=== PATIENT | male | born 1980 | race Caucasian/White ===

== ENCOUNTER → 2016-07-11 | Outpatient (REF) | LOC: WSOH 11:08 | DX: Z01.10 Encounter for examination of ears and hearing without abnormal findings (principal) | CPT/HCPCS: G0463 ==

== ENCOUNTER → 2017-10-03 | Outpatient (CLI) | payer BC ==
[~2017-10-03] VITALS: Ht 184.2 cm; Wt 164.9 kg
[~2017-10-03] MED LIST: DEPO-TESTOS100 MG/ML IM; SYNTHROID0.3 MG PO; ZESTRIL 20MG TA20 MG PO
[2017-10-03 08:28] VITALS: BP 122/80; PULSE 88
== END ==
LOC: LIGHT 07:53
DX: G47.33 Obstructive sleep apnea (adult) (pediatric) (principal); E88.81 Metabolic syndrome and other insulin resistance; E66.01 Morbid (severe) obesity due to excess calories; Z68.42 Body mass index [BMI] 45.0-49.9, adult; Z71.3 Dietary counseling and surveillance
CPT/HCPCS: G0463

== ENCOUNTER → 2018-10-27 | Outpatient (CLI) | payer BC ==
[~2018-10-27] MED LIST changes: +FLEXERIL 1010 MG/TAB PO; +NEURONTIN800 MG/TAB PO; +RELAFEN 50500 MG/TAB PO; +ROBAXIN 50500 MG/TAB PO; -ZESTRIL 20MG TA20 MG PO; +ZESTRIL40 MG PO
== END ==
LOC: LIGHT 14:00
DX: G47.33 Obstructive sleep apnea (adult) (pediatric) (principal); E88.81 Metabolic syndrome and other insulin resistance; R73.01 Impaired fasting glucose; E66.01 Morbid (severe) obesity due to excess calories; Z68.42 Body mass index [BMI] 45.0-49.9, adult; Z71.3 Dietary counseling and surveillance

== ENCOUNTER → 2018-11-06 | Outpatient (CLI) | payer BC | LOC: BHSO 14:55 | DX: F43.10 Post-traumatic stress disorder, unspecified (principal) ==

== ENCOUNTER → 2018-11-17 | Outpatient (CLI) | payer BC | LOC: BHSO 14:02 | DX: F43.10 Post-traumatic stress disorder, unspecified (principal) ==

== ENCOUNTER → 2018-11-18 | Outpatient (CLI) | payer BC | LOC: LIGHT 13:34 | DX: G47.33 Obstructive sleep apnea (adult) (pediatric) (principal); E88.81 Metabolic syndrome and other insulin resistance; R73.01 Impaired fasting glucose; E66.01 Morbid (severe) obesity due to excess calories; Z68.42 Body mass index [BMI] 45.0-49.9, adult; Z71.3 Dietary counseling and surveillance ==

== ENCOUNTER → 2018-11-25 | Outpatient (CLI) | payer BC ==
[~2018-11-25] MED LIST changes: +PHENTERMINE15 MG PO; +TOPAMAX 25MG25 M1 PO
== END ==
LOC: BHSO 08:59
DX: F43.10 Post-traumatic stress disorder, unspecified (principal)

== ENCOUNTER → 2018-11-27 | Outpatient (CLI) | payer BC ==
[~2018-11-27] VITALS: Ht 184.2 cm; Wt 163.7 kg
[2018-11-27 14:07] VITALS: BP 144/80; PULSE 100
== END ==
LOC: LIGHT 13:38
DX: G47.33 Obstructive sleep apnea (adult) (pediatric) (principal); E88.81 Metabolic syndrome and other insulin resistance; R73.01 Impaired fasting glucose; E66.01 Morbid (severe) obesity due to excess calories; Z68.42 Body mass index [BMI] 45.0-49.9, adult; Z71.3 Dietary counseling and surveillance
CPT/HCPCS: G0463

== ENCOUNTER → 2019-01-12 | Outpatient (CLI) | payer BC | LOC: BHSO 10:08 | DX: F43.10 Post-traumatic stress disorder, unspecified (principal) ==

== ENCOUNTER → 2019-02-05 | Outpatient (CLI) | payer BC | LOC: BHSO 15:07 | DX: F43.10 Post-traumatic stress disorder, unspecified (principal) ==

== ENCOUNTER → 2019-03-19 | Outpatient (CLI) | payer BC | LOC: BHSO 14:51 | DX: F43.10 Post-traumatic stress disorder, unspecified (principal) ==

== ENCOUNTER → 2019-04-30 | Outpatient (CLI) | payer BC | LOC: BHSO 14:52 | DX: F43.10 Post-traumatic stress disorder, unspecified (principal) ==

== ENCOUNTER → 2019-05-22 | Outpatient (CLI) | payer BC | LOC: BHSO 16:00 | DX: F43.10 Post-traumatic stress disorder, unspecified (principal) ==

== ENCOUNTER → 2019-07-17 | Outpatient (CLI) | payer BC | LOC: BHSO 13:58 | DX: F43.10 Post-traumatic stress disorder, unspecified (principal) ==

== ENCOUNTER → 2019-07-31 | Outpatient (CLI) | payer BC | LOC: BHSO 12:57 | DX: F43.10 Post-traumatic stress disorder, unspecified (principal) ==

== ENCOUNTER → 2019-08-28 | Outpatient (CLI) | payer BC | LOC: BHSO 13:10 | DX: F43.10 Post-traumatic stress disorder, unspecified (principal) ==

== ENCOUNTER → 2019-10-02 | Outpatient (CLI) | payer OTHER | LOC: BHSO 13:00 | DX: F43.0 Acute stress reaction (principal) ==

== ENCOUNTER → 2019-10-16 | Outpatient (CLI) | payer OTHER | LOC: BHSO 12:58 | DX: F43.10 Post-traumatic stress disorder, unspecified (principal) ==

== ENCOUNTER → 2019-11-13 | Outpatient (CLI) | payer OTHER | LOC: BHSO 13:56 | DX: F43.10 Post-traumatic stress disorder, unspecified (principal) ==

== ENCOUNTER → 2019-12-04 | Outpatient (CLI) | payer OTHER | LOC: BHSO 14:55 | DX: F43.10 Post-traumatic stress disorder, unspecified (principal) ==

== ENCOUNTER → 2019-12-11 | Outpatient (CLI) | payer OTHER | LOC: BHSO 14:00 | DX: F43.10 Post-traumatic stress disorder, unspecified (principal) ==

== ENCOUNTER → 2019-12-18 | Outpatient (CLI) | payer OTHER | LOC: BHSO 10:56 | DX: F43.10 Post-traumatic stress disorder, unspecified (principal) ==

== ENCOUNTER → 2019-12-25 | Outpatient (CLI) | payer OTHER | LOC: BHSO 13:54 | DX: F43.10 Post-traumatic stress disorder, unspecified (principal) ==

== ENCOUNTER → 2020-01-08 | Outpatient (CLI) | payer OTHER | LOC: BHSO 14:52 | DX: F43.10 Post-traumatic stress disorder, unspecified (principal) ==